=== PATIENT | male | born 1955 | race Two or more races ===

== ENCOUNTER 2016-06-09 12:22 | Emergency (ER) | payer MEDICAID, OTHER ==
[~2016-06-09] VITALS: Ht 167.6 cm; Wt 79.4 kg
[2016-06-09 14:35] LABS: Basophils # (auto) 0 uL; Basophils % (auto) 0.4 % (0.0-2.0); Eosinophils # (auto) 0.2 uL; Eosinophils % (auto) 2.7 % (0.0-7.0); Hematocrit 50.1 % (41.0-53.0); Hemoglobin 16.4 g/dL (13.5-17.5); Lymphocytes # (auto) 2.5 uL; Lymphocytes % (auto) 29.1 % (10.0-50.0); Mean Corpuscular Hemoglobin 31.6 pg (28.0-32.0); Mean Corpuscular Hgb Conc. 32.7 g/dL (32.0-36.0); Mean Corpuscular Volume 96.7 fL (80.0-100.0); Mean Platelet Volume 9.8 fL (7.4-10.4); Monocytes # (auto) 0.5 uL; Monocytes % (auto) 6.2 % (0.0-12.0); Neutrophils # (auto) 5.2 uL; Neutrophils % (auto) 61.6 % (37.0-80.0); Platelet Count (auto) 196 10^3/uL (140-450); White Blood Cell 8.5 10^3/uL (4.4-10.8)
[2016-06-09 14:51] LABS: INR 1.11 (0.9-1.15); Partial Thromboplastin Time 27.8 sec (22.64-33.71); Prothrombin Time 11.4 sec (9.37-12.3)
[2016-06-09 14:54] LABS: Albumin 3.6 g/dL (3.4-5.0); BUN/Creatinine Ratio 14.2; Calcium 8.5 mg/dL (8.5-10.1); Potassium 3.6 mmol/L (3.5-5.1)
[2016-06-09 14:57] LABS: Bilirubin, Total 3.9 mg/dL (0.2-1.0); Total Protein 7.4 g/dL (6.4-8.2)
[2016-06-09] MEDS ORDERED: SODIUM CHLORIDE 0.9% 1,000 ML IV ONE (16:07)
[2016-06-09 18:40] VITALS: BP 135/85
== END 2016-06-09 18:41 | disposition home or self-care (01) ==
LOC: ER 12:30
DX: R10.13 Epigastric pain (principal); K29.20 Alcoholic gastritis without bleeding; R73.9 Hyperglycemia, unspecified; R74.8 Abnormal levels of other serum enzymes; Z88.6 Allergy status to analgesic agent
CPT/HCPCS: 36415; 71020; 74176; 80053; 81002; 83690; 83735; 84443; 84484; 85025; 85610; 85730; 93005; 96360; 99285; J7030

== ENCOUNTER 2017-04-03 18:04 | Emergency (ER) | payer MEDICAID ==
[~2017-04-03] VITALS: Ht 167.6 cm; Wt 86.2 kg
== END 2017-04-04 05:53 | disposition left against medical advice (07) ==
LOC: ER 18:04 → EDBD 18:04 → EDSEX 18:04 → ER 04-04 05:08
DX: R07.9 Chest pain, unspecified (principal); Z53.21 Procedure and treatment not carried out due to patient leaving prior to being seen by health care provider
CPT/HCPCS: 93005

== ENCOUNTER → 2020-01-22 | Emergency (ER) | payer MEDICAID ==
[~2020-01-22] VITALS: Ht 167.6 cm; Wt 79.4 kg
[~2020-01-22] MED LIST: HYDROcodone-ACET 5/325MG TAB PO ONE
[2020-01-22 18:34] LABS: Urine Bacteria NONE SEEN /hpf (None Seen); Urine Blood Negative /uL (Negative); Urine Specific Gravity 1.025 (1.001-1.035); Urine WBC 1 /hpf (0 - 3)
[2020-01-22 21:10] LABS: Basophils # (auto) 0.1 10 ^3/uL (0-0.2); Eosinophils # (auto) 0.2 10 ^3/uL (0-0.8); Monocytes # (auto) 0.5 10 ^3/uL (0-1.3); Platelet Count (auto) 138 10^3/uL (140-450); Red Cell Distribution Width 13.2 % (11.8-14.3)
[2020-01-22 21:17] LABS: Basophils % (auto) 1.3 % (0.0-2.0); Eosinophils % (auto) 3.4 % (0.0-7.0); Lymphocytes # (auto) 2.6 10 ^3/uL (0.4-5.4); Lymphocytes % (auto) 38.6 % (10.0-50.0); Mean Corpuscular Hemoglobin 32.3 pg (28.0-32.0); Mean Corpuscular Hgb Conc. 36.3 g/dL (32.0-36.0); Mean Corpuscular Volume 88.9 fL (80.0-100.0); Monocytes % (auto) 7.5 % (0.0-12.0); Neutrophils # (auto) 3.3 10 ^3/uL (1.6-8.6); Neutrophils % (auto) 49.2 % (37.0-80.0); Nucleated Red Blood Cells % 0.2 %; Red Blood Cells 4.95 10^6/uL (4.5-5.90); White Blood Cell 6.7 10^3/uL (4.4-10.8)
[2020-01-22 21:28] LABS: Calcium 8.7 mg/dL (8.5-10.1); Potassium 4.5 mmol/L (3.5-5.1)
[2020-01-22 21:32] LABS: BUN/Creatinine Ratio 15.8; Bilirubin, Total 1.1 mg/dL (0.2-1.0); Total Protein 8.2 g/dL (6.4-8.2)
[2020-01-22 23:22] VITALS: BP 137/88
== END | disposition home or self-care (01) ==
LOC: ER 16:46
DX: S33.5XXA Sprain of ligaments of lumbar spine, initial encounter (principal); M54.16 Radiculopathy, lumbar region; R07.89 Other chest pain; X58.XXXA Exposure to other specified factors, initial encounter; Y93.89 Activity, other specified; Y92.89 Other specified places as the place of occurrence of the external cause; Y99.8 Other external cause status
CPT/HCPCS: 36415; 80053; 81001; 84295; 84300; 85025

== ENCOUNTER 2021-06-27 00:02 | Emergency (ER) | payer MEDICARE, MEDICAID ==
[~2021-06-27] VITALS: Ht 167.6 cm; Wt 79.4 kg
[2021-06-27 00:04] VITALS: BP 154/92
[2021-06-27 01:48] LABS: Basophils # (auto) 0.1 10 ^3/uL (0-0.2); Basophils % (auto) 1.5 % (0.0-2.0); Eosinophils # (auto) 0.3 10 ^3/uL (0-0.8); Eosinophils % (auto) 3.9 % (0.0-7.0); Lymphocytes # (auto) 2.7 10 ^3/uL (0.4-5.4); Lymphocytes % (auto) 40.7 % (10.0-50.0); Mean Corpuscular Hemoglobin 32.7 pg (28.0-32.0); Mean Corpuscular Hgb Conc. 35.9 g/dL (32.0-36.0); Mean Corpuscular Volume 91.1 fL (80.0-100.0); Monocytes # (auto) 0.5 10 ^3/uL (0-1.3); Monocytes % (auto) 8.4 % (0.0-12.0); Neutrophils % (auto) 45.5 % (37.0-80.0); Nucleated Red Blood Cells % 0.1 %; Red Blood Cells 4.28 10^6/uL (4.5-5.90); Red Cell Distribution Width 13.3 % (11.8-14.3); White Blood Cell 6.5 10^3/uL (4.4-10.8)
[2021-06-27 02:59] LABS: Potassium 3.6 mmol/L (3.5-5.1)
[2021-06-27 03:00] LABS: Albumin 3.3 g/dL (3.4-5.0); BUN/Creatinine Ratio 24.5; Bilirubin, Total 0.5 mg/dL (0.2-1.0); Calcium 8.8 mg/dL (8.5-10.1); Total Protein 6.5 g/dL (6.4-8.2)
== END 2021-06-27 04:05 | disposition home or self-care (01) ==
LOC: ER 00:09
DX: R04.0 Epistaxis (principal); E11.9 Type 2 diabetes mellitus without complications; Z90.49 Acquired absence of other specified parts of digestive tract; Z88.6 Allergy status to analgesic agent
CPT/HCPCS: 36415; 80053; 85025; 86850; 86900; 86901

== ENCOUNTER 2021-12-10 04:13 | Emergency (ER) | payer MEDICARE, MEDICAID ==
[~2021-12-10] VITALS: Ht 167.6 cm; Wt 80.0 kg
[2021-12-10 04:22] VITALS: BP 157/85
== END 2021-12-10 10:44 | disposition left against medical advice (07) ==
LOC: ER 04:13
DX: M79.605 Pain in left leg (principal); M79.604 Pain in right leg; Z53.21 Procedure and treatment not carried out due to patient leaving prior to being seen by health care provider

== ENCOUNTER 2022-12-21 20:02 | Emergency (ER) | payer MEDICARE, MEDICAID ==
[~2022-12-21] VITALS: Ht 167.6 cm; Wt 81.0 kg
[2022-12-21 20:02] VITALS: BP 122/80; PULSE 79; RESP 16; O2SAT 98
== END 2022-12-21 20:36 | disposition left against medical advice (07) ==
LOC: EDUNIT# 20:02 → EDBD 20:02 → ER 20:02
DX: S01.91XA Laceration without foreign body of unspecified part of head, initial encounter (principal); F10.90 Alcohol use, unspecified, uncomplicated; Z53.21 Procedure and treatment not carried out due to patient leaving prior to being seen by health care provider; W18.39XA Other fall on same level, initial encounter; Y93.89 Activity, other specified; Y92.89 Other specified places as the place of occurrence of the external cause; Y99.8 Other external cause status
CPT/HCPCS: 93005

== ENCOUNTER 2024-06-11 22:30 | Emergency (ER) | payer OTHER, MEDICAID ==
[~2024-06-11] VITALS: Ht 167.6 cm; Wt 77.2 kg
[2024-06-11 22:51] VITALS: BP 145/96; RESP 18; O2SAT 97
--- NOTE | 2024-06-11 22:55 | ED.PDOC ---
HPI Comments 69-year-old male who came to ER for chest pains. Patient denies any medical problems. States about 1 hour prior to arrival, he started having sudden onset left-sided chest pains, felt like being punched, radiating to the back, unprovoked,7/10 intensity, associated with dizziness. Chief Complaint: Chest Pain Time Seen by MD: 22:54 Primary Care Provider: NONE Reviewed Notes: Nurses Notes Allergies: Coded Allergies: Aspirin (Verified Allergy, Unknown, 06/09/16) Mode of Arrival: Ambulatory Severity: Moderate Timing: Minutes Duration: Since onset Review of Systems REVIEW OF SYSTEMS: No fever, no chills, or fatigue HEENT: No sore throat, no earache, no congestion, no neck pain. Cardiac: (+)chest pain. No palpitations. Lungs: No shortness of breath, no cough. GI: No nausea, no vomiting, no diarrhea, no constipation, no abdominal pain : No dysuria, frequency, or urgency. No hematuria. Musculoskeletal: No joint pain , no joint swelling, no extremity edema. Skin: No rash, no itching. Neuro: No headache, no dizziness, no weakness Vital Signs Vital Signs Date Time Temp Pulse Resp B/P (MAP) Pulse Ox O2 Delivery O2 Flow Rate FiO2 06/11/24 23:34 75 06/11/24 22:51 97.9 18 145/96 (112) 97 Physical Exam General: Awake, alert and oriented. No acute distress. Skin: Skin in warm, dry and intact. Appropriate color for ethnicity. Nailbeds pink with no cyanosis. HEENT: The head is normocephalic and atraumatic. Conjunctivae are clear without exudates or hemorrhage. Sclera is non-icteric. EOM are intact. No signs of nystagmus. Eyelids are normal in appearance without swelling or lesions. Oral mucosa is pink and moist Neck: The neck is supple with normal range of motion. No JVD. Cardiac: Heart rate and rhythm are normal. No murmurs, gallops, or rubs are auscultated. Respiratory: No signs of respiratory distress. Lung sounds are clear in all lobes bilaterally without rales, ronchi, or wheezes. Abdominal: Abdomen is soft, non-tender without distention. Bowel sounds are present and normoactive in all four quadrants. Extremities: Upper and lower extremities are atraumatic in appearance without deformity or edema. Neurological: The patient is awake, alert and oriented to person, place, and time with normal speech. Speech is clear. There is no facial asymmetry. Psychiatric: Appropriate mood and affect. Good judgement and insight. No visual or auditory hallucinations. Past Medical History PAST MEDICAL HISTORY: DM, Denies Surgical History: Appendectomy, Denies all surgeries Family History Family History: Reviewed,noncontributory to illness Social History Smoker: Non-Smoker Alcohol: Occasionally Drugs: Denies Drug Use Lives In: Home EKG EKG : Pulse Rate (adult): 82 Cardiac Rhythm: NSR Hypertrophy: LAE Was a procedure done? Was a procedure done?: No CP Differential Dx Differential Diagnosis: Angina, Anxiety / Panic Attack, Electrolyte Disorder Differential Diagnosis: Angina, Chest Wall Pain, Costochondritis, Esophageal reflux/spasm, Gastritis, Myocardial Infarction, Pneumonia X-Ray, Labs, Meds, VS Vital Signs Date Time Temp Pulse Resp B/P (MAP) Pulse Ox O2 Delivery O2 Flow Rate FiO2 06/11/24 23:34 75 06/11/24 22:55 82 06/11/24 22:51 97.9 87 18 145/96 (112) 97 06/11/24 22:46 82 Lab Test 06/11/24 23:21 06/11/24 22:42 Range/Units Troponin I High Sensitivity 5 5 </=54 ng/L White Blood Count 11.5 H 4.4-10.8 10^3/uL Red Blood Count 5.28 4.5-5.90 10^6/uL Hemoglobin 17.0 13.5-17.5 g/dL Hematocrit 48.1 41.0-53.0 % Mean Corpuscular Volume 91.1 80.0-100.0 fL Mean Corpuscular Hemoglobin 32.2 H 28.0-32.0 pg Mean Corpuscular Hemoglobin Concent 35.3 32.0-36.0 g/dL Red Cell Distribution Width 13.7 11.8-14.3 % Platelet Count 161 140-450 10^3/uL Mean Platelet Volume 9.4 6.9-10.8 fL Neutrophils (%) (Auto) 52.1 37.0-80.0 % Lymphocytes (%) (Auto) 38.6 10.0-50.0 % Monocytes (%) (Auto) 5.7 0.0-12.0 % Eosinophils (%) (Auto) 2.6 0.0-7.0 % Basophils (%) (Auto) 1.0 0.0-2.0 % Neutrophils # (Auto) 6.0 1.6-8.6 10 ^3/uL Lymphocytes # (Auto) 4.4 0.4-5.4 10 ^3/uL Monocytes # (Auto) 0.7 0-1.3 10 ^3/uL Eosinophils # (Auto) 0.3 0-0.8 10 ^3/uL Basophils # (Auto) 0.1 0-0.2 10 ^3/uL Nucleated Red Blood Cells 0.1 % Sodium Level 144 136-145 mmol/L Potassium Level 3.6 3.5-5.1 mmol/L Chloride Level 111 H 98-107 mmol/L Carbon Dioxide Level 22 20-31 mmol/L Anion Gap 11 5-15 Blood Urea Nitrogen 14 9-23 mg/dL Creatinine 1.14 0.700-1.30 mg/dL Glomerular Filtration Rate Calc 70 >90 mL/min BUN/Creatinine Ratio 12.3 10.0-20.0 Serum Glucose 130 H 74-106 mg/dL Calcium Level 9.4 8.7-10.4 mg/dL Total Bilirubin 0.8 0.2-1.0 mg/dL Aspartate Amino Transferase (AST) 174 H 13-40 U/L Alanine Aminotransferase (ALT) 184 H 7-40 U/L Alkaline Phosphatase 153 H 46-116 U/L B-Type Natriuretic Peptide 17.45 0-100 pg/mL Total Protein 7.6 5.7-8.2 g/dL Albumin 4.6 3.2-4.8 g/dL Plasma/Serum Blood Alcohol 205.4 H <10 mg/dL Time of 1ST Reevaluation: 02:00 Reevaluation 1ST: N/A Patient Education/Counseling: Other Family Education/Counseling: No Family Present Departure 1 Departure Time of Disposition: 02:00 Impression: Primary Impression: Chest pain Disposition: 07 LEFT AWOL/ELOPED Condition: Stable Comments 69-year-old male who presents to the emergency department with chest pain. Initial EKGs and troponins negative. Patient eloped prior to 3rd EKG and troponin, re-evaluation and discussion of discharge instructions.. Critical Care Note Critical Care Time?: No Stability Stability form required: No Heart Score Heart Score: Heart Score Response (Comments) Value History Moderate Suspicious 1 EKG Normal 0 Age >65 2 Risk Factors 1 or 2 risk factors 1 Troponin Normal limit 0 Total 4 I personally scribed for ÓSCAR ESTES MD ([email or web address]) on 06/11/24 at 22:55. Electronically submitted by Fede Burrows ([employer]). I personally scribed for ÓSCAR ESTES MD ([employer] [facility]) on 06/12/24 at 02:51. Electronically submitted by Fede Burrows ([employer]). ÓSCAR ESTES MD Jun 11, 2024 22:55
[2024-06-11 23:03] LABS: Basophils # (auto) 0.1 10 ^3/uL (0-0.2); Eosinophils # (auto) 0.3 10 ^3/uL (0-0.8); Eosinophils % (auto) 2.6 % (0.0-7.0); Hematocrit 48.1 % (41.0-53.0); Lymphocytes # (auto) 4.4 10 ^3/uL (0.4-5.4); Lymphocytes % (auto) 38.6 % (10.0-50.0); Mean Corpuscular Hemoglobin 32.2 pg (28.0-32.0); Mean Corpuscular Hgb Conc. 35.3 g/dL (32.0-36.0); Mean Corpuscular Volume 91.1 fL (80.0-100.0); Monocytes # (auto) 0.7 10 ^3/uL (0-1.3); Monocytes % (auto) 5.7 % (0.0-12.0); Neutrophils % (auto) 52.1 % (37.0-80.0); Nucleated Red Blood Cells % 0.1 %; Platelet Count (auto) 161 10^3/uL (140-450); Red Blood Cells 5.28 10^6/uL (4.5-5.90); Red Cell Distribution Width 13.7 % (11.8-14.3); White Blood Cell 11.5 10^3/uL (4.4-10.8)
[2024-06-11 23:17] LABS: Albumin 4.6 g/dL (3.2-4.8); Anion Gap 11 (5-15); BUN/Creatinine Ratio 12.3 (10.0-20.0); Bilirubin, Total 0.8 mg/dL (0.2-1.0); Blood Alcohol 205.4 mg/dL (<10); Blood Urea Nitrogen 14 mg/dL (9-23); Calcium 9.4 mg/dL (8.7-10.4); Carbon Dioxide 22 mmol/L (20-31); Chloride 111 mmol/L (98-107); Glucose 130 mg/dL (74-106); Potassium 3.6 mmol/L (3.5-5.1); Sodium 144 mmol/L (136-145); Total Protein 7.6 g/dL (5.7-8.2)
[2024-06-11 23:18] LABS: Alanine Aminotransferase 184 U/L (7-40); Alkaline Phosphatase 153 U/L (46-116); Aspartate Aminotransferase 174 U/L (13-40)
[2024-06-11 23:34] VITALS: PULSE 75
--- NOTE | 2024-06-12 00:04 | DVH ---
EXAM: XY CHEST XRAY 1 VIEW CLINICAL HISTORY: cp TECHNIQUE: Single AP view of the chest WID: COMPARISON: None FINDINGS: Lines and tubes: None Chest: The heart size and pulmonary vasculature is within normal limits. No pleural effusion, pneumothorax, or consolidation. The osseous structures are grossly intact. Multilevel thoracic spondylosis. IMPRESSION: No acute cardiopulmonary abnormality.
[2024-06-12] MEDS ORDERED: MAALOX PLUS or MAALOX 30 ML PO ONE (01:00)
[2024-06-12] MEDS ORDERED: ACETAMINOPHEN 325 MG TAB PO ONE (01:00)
[2024-06-12] MEDS ORDERED: LIDOCAINE VISCOUS 2% 15ML UD PO ONE (01:00)
--- NOTE | 2024-06-13 07:19 | ECG ---
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
--- NOTE | 2024-06-13 07:19 | ECG ---
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
== END 2024-06-12 02:48 | disposition left against medical advice (07) ==
LOC: ER 22:30
DX: R07.89 Other chest pain (principal); R42 Dizziness and giddiness; Z88.6 Allergy status to analgesic agent; Z90.49 Acquired absence of other specified parts of digestive tract
CPT/HCPCS: 36415; 71045; 80053; 80320; 83880; 84484; 85025; 93005